=== PATIENT | male | born 1955 | race African-American/Black ===

== ENCOUNTER 2018-06-22 15:54 | Inpatient (IN) | payer SELFPAY ==
[~2018-06-22] VITALS: Ht 170.2 cm; Wt 73.9 kg
[2018-06-22 16:49] LABS: BASOPHILS % 0.8 % (0.0-2.0); EOSINOPHILS % 3.1 % (0.0-5.0); HEMATOCRIT. 36.5 % (42.0-52.0); LYMPHOCYTES % 21.3 % (20.0-50.0); MEAN CORPUSCULAR HEMOGLOBIN 29.3 pg (28.0-32.0); MEAN PLATELET VOLUME 9.1 fl (7.4-10.4); MONOCYTES % 10.9 % (2.0-8.0); NEUTROPHILS % 63.9 % (40.0-76.0); PLATELET 196 x1000/uL (130-400); RED BLOOD CELL COUNT 4.11 mill/uL (4.7-6.1); RED CELL DISTRIBUTION WIDTH 12.3 % (11.6-14.6)
[2018-06-22 16:54] LABS: CHLORIDE 108 mEq/L (98-107)
[2018-06-22 16:55] LABS: PROTHROMBIN TIME 10.4 sec (9.1-11.1)
[2018-06-22 16:58] LABS: ETHANOL BLOOD < 10 mg/dL
[2018-06-22] MEDS ORDERED: ASPIRIN 81MG TABLET PO NR (19:45)
[2018-06-22] MEDS: HYDROCODONE/ACETAMINOPHEN 5/325MG TABLET PO STA ×2 (21:00→21:09)
[2018-06-22] MEDS: HYDROCODONE/ACETAMINOPHEN 5/325MG TABLET PO NR ×2 (21:10→21:11)
[2018-06-22 22:45] VITALS: BP 160/104
[2018-06-22] MEDS ORDERED: IPRATROPIUM/ALBUTEROL 0.5-3(2.5)MG/3ML NEB INH PRN (22:45)
[2018-06-22] MEDS ORDERED: HYDROCODONE/APAP 7.5/325MG 1 TAB TABLET PO PRN (22:45)
[2018-06-22] MEDS ORDERED: MAGNESIUM/ALUMINUM HYDROXIDE/SIMETHICONE 30ML UDC PO PRN (22:45)
[2018-06-22] MEDS ORDERED: NA PHOS,M-B/NA PHOS,DI-BA ENEMA 118ML PR PRN (22:45)
[2018-06-22] MEDS ORDERED: ONDANSETRON HCL 4MG/2ML VIAL IV PRN (22:45)
[2018-06-22] MEDS ORDERED: DOCUSATE SODIUM 100MG CAPSULE PO PRN (22:45)
[2018-06-22] MEDS ORDERED: HYDROCODONE/ACETAMINOPHEN 10/325MG TABLET PO PRN (22:45)
[2018-06-22] MEDS ORDERED: DIPHENHYDRAMINE 50MG/ML VIAL IV PRN (22:45)
[2018-06-22] MEDS ORDERED: GUAIFENESIN 200MG/10ML SUGAR FREE UDC PO PRN (22:45)
[2018-06-22] MEDS ORDERED: HYDROCODONE/ACETAMINOPHEN 5/325MG TABLET PO PRN (22:45)
[2018-06-22] MEDS ORDERED: ACETAMINOPHEN 325MG TABLET PO PRN (22:45)
[2018-06-22] MEDS ORDERED: ACETAMINOPHEN 650MG SUPP PR PRN (22:45)
[2018-06-22] MEDS ORDERED: ACETAMINOPHEN 650MG/20.3ML UDC GT PRN (22:45)
[2018-06-22 22:50] VITALS: BP 162/106
[2018-06-22] MEDS: CLONIDINE 0.1MG TABLET PO PRN (23:41)
[2018-06-23 00:51] VITALS: BP 139/89
[2018-06-23 04:00] VITALS: BP 146/90
[2018-06-23] MEDS: SODIUM CHLORIDE 0.9% INJ 3ML FLUSH IVF SCH ×3 (06:59→21:40)
[2018-06-23 07:44] LABS: BASOPHILS % 0.9 % (0.0-2.0); EOSINOPHILS % 5.5 % (0.0-5.0); HEMOGLOBIN. 12.4 g/dL (14.0-18.0); MEAN CORPUSCULAR HEMOGLOBIN 29.4 pg (28.0-32.0); MEAN PLATELET VOLUME 9.3 fl (7.4-10.4); MONOCYTES % 14.1 % (2.0-8.0); NEUTROPHILS % 45.5 % (40.0-76.0); PLATELET 184 x1000/uL (130-400); RED BLOOD CELL COUNT 4.23 mill/uL (4.7-6.1); RED CELL DISTRIBUTION WIDTH 12.1 % (11.6-14.6)
[2018-06-23 07:49] LABS: CHLORIDE 106 mEq/L (98-107)
[2018-06-23 07:57] LABS: CREATINE KINASE 138 IU/L (39-308)
[2018-06-23 08:01] LABS: LDL CHOLESTEROL 87 mg/dL (5-100)
[2018-06-23 08:03] LABS: HDL CHOLESTEROL 61 mg/dL (40-59)
[2018-06-23 08:05] VITALS: BP 166/110
[2018-06-23 08:05] LABS: CREATINE KINASE MB FRACTION 1.7 ng/mL (0.5-3.6)
[2018-06-23] MEDS: CLONIDINE 0.1MG TABLET PO PRN ×2 (08:07→14:24)
[2018-06-23 10:35] LABS: T4 FREE 0.76 ng/dL (0.76-1.46)
[2018-06-23 12:22] VITALS: BP 149/103
[2018-06-23 15:21] LABS: CLARITY URINE CLEAR (CLEAR); COLOR URINE YELLOW (YELLOW); KETONES URINE NEGATIVE (NEGATIVE); LEUKOCYTE ESTERASE URINE NEGATIVE (NEGATIVE); NITRITE URINE NEGATIVE (NEGATIVE); OCCULT BLOOD URINE NEGATIVE (NEGATIVE); PROTEIN URINE 2+ (NEGATIVE); SPECIFIC GRAVITY URINE 1.014 (1.005-1.030)
[2018-06-23 15:45] LABS: *AMPHETAMINES SCREEN URINE NEGATIVE (NEGATIVE)
[2018-06-23 15:47] LABS: *BARBITURATES SCREEN URINE NEGATIVE (NEGATIVE); *BENZODIAZEPINES SCREEN URINE NEGATIVE (NEGATIVE); *COCAINE SCREEN URINE PRESUMTIVE POSITIVE (NEGATIVE)
[2018-06-23 15:48] LABS: CANNABINOID URINE SCREEN NEGATIVE (NEGATIVE); METHADONE URINE SCREEN NEGATIVE (NEGATIVE); OPIATES URINE SCREEN NEGATIVE (NEGATIVE); PHENCYCLIDINE URINE SCREEN NEGATIVE (NEGATIVE)
[2018-06-23] MEDS ORDERED: AMLODIPINE 10MG TABLET PO NR (16:00)
[2018-06-23 16:11] VITALS: BP 147/93
[2018-06-23 16:58] LABS: CREATINE KINASE 114 IU/L (39-308)
[2018-06-23 16:59] LABS: CREATINE KINASE MB FRACTION 1.6 ng/mL (0.5-3.6)
[2018-06-23] MEDS: SODIUM CHLORIDE 0.9% 1,000 ML IV SCH (17:29)
[2018-06-23 20:00] VITALS: BP 125/80
[2018-06-24] VITALS: BP 153/102
[2018-06-24 04:00] VITALS: BP 136/83
[2018-06-24] MEDS: SODIUM CHLORIDE 0.9% INJ 3ML FLUSH IVF SCH ×3 (05:17→21:19)
[2018-06-24] MEDS: SODIUM CHLORIDE 0.9% 1,000 ML IV SCH ×2 (05:17→18:29)
[2018-06-24 08:30] VITALS: BP 178/119
[2018-06-24] MEDS: AMLODIPINE 10MG TABLET PO SCH (08:47)
[2018-06-24] MEDS: CLONIDINE 0.1MG TABLET PO PRN (08:47)
[2018-06-24 11:25] LABS: BASOPHILS % 0.8 % (0.0-2.0); EOSINOPHILS % 3.4 % (0.0-5.0); HEMATOCRIT. 38.5 % (42.0-52.0); HEMOGLOBIN. 12.7 g/dL (14.0-18.0); LYMPHOCYTES % 26.6 % (20.0-50.0); MEAN CORPUSCULAR HEMOGLOBIN 29.4 pg (28.0-32.0); MEAN CORPUSCULAR VOLUME 89.5 fL (80.0-94.0); MONOCYTES % 10.8 % (2.0-8.0); NEUTROPHILS % 58.4 % (40.0-76.0); PLATELET 193 x1000/uL (130-400); RED CELL DISTRIBUTION WIDTH 12.2 % (11.6-14.6)
[2018-06-24 11:28] LABS: CHLORIDE 107 mEq/L (98-107)
[2018-06-24 12:00] VITALS: BP 142/94
[2018-06-24 16:00] VITALS: BP 135/89
[2018-06-24 20:50] VITALS: BP 127/95
[2018-06-25] VITALS: BP 137/95
[2018-06-25 04:00] VITALS: BP 155/96
[2018-06-25 05:02] VITALS: BP 155/96
[2018-06-25] MEDS: SODIUM CHLORIDE 0.9% INJ 3ML FLUSH IVF SCH ×2 (07:10→13:58)
[2018-06-25] MEDS: SODIUM CHLORIDE 0.9% 1,000 ML IV SCH (07:11)
[2018-06-25 08:00] VITALS: BP 141/95
[2018-06-25] MEDS: AMLODIPINE 10MG TABLET PO SCH (09:05)
[2018-06-25 12:00] VITALS: BP 159/111
[2018-06-25] MEDS: CLONIDINE 0.1MG TABLET PO PRN (12:14)
[2018-06-25 14:03] VITALS: BP 146/107
== END 2018-06-25 18:55 | disposition home or self-care (01) | DRG 203 ==
LOC: ER 15:54 → 5WST 20:17 → ENRESERV 21:27
PROVIDERS: ADMIT Family Medicine; ATTEND Family Medicine
DX: R07.9 Chest pain, unspecified (principal); N17.9 Acute kidney failure, unspecified; E44.1 Mild protein-calorie malnutrition; I12.9 Hypertensive chronic kidney disease with stage 1 through stage 4 chronic kidney disease, or unspecified chronic kidney disease; D64.9 Anemia, unspecified; N18.9 Chronic kidney disease, unspecified; F17.200 Nicotine dependence, unspecified, uncomplicated; Z68.25 Body mass index [BMI] 25.0-25.9, adult; V43.52XA Car driver injured in collision with other type car in traffic accident, initial encounter; Y93.89 Activity, other specified; Y92.488 Other paved roadways as the place of occurrence of the external cause; Y99.8 Other external cause status
CPT/HCPCS: 36415; 70450; 71045; 76770; 80053; 80061; 80305; 81003; 82550; 82553; 83036; 83880; 84439; 84443; 84484; 85025; 85379; 85610; 93005; 93306; 99285; A6261; G0482; J7030